=== PATIENT | male | born 1940 | race Caucasian/White ===

== ENCOUNTER 2020-10-16 11:00 | Outpatient (RCR) | payer MEDICARE, BC | END 2020-10-28 | disposition home or self-care (01) | LOC: CARDREHAB | DX: Z48.812 Encounter for surgical aftercare following surgery on the circulatory system (principal); Z95.5 Presence of coronary angioplasty implant and graft ==

== ENCOUNTER 2020-11-06 13:00 | Outpatient (RCR) | payer MEDICARE, BC | END 2021-02-04 | disposition home or self-care (01) | LOC: CARDREHAB | DX: Z48.812 Encounter for surgical aftercare following surgery on the circulatory system (principal); Z95.5 Presence of coronary angioplasty implant and graft ==

== ENCOUNTER → 2021-04-04 | Outpatient (CLI) | payer MEDICARE, BC | LOC: RAD 09:52 | DX: J84.10 Pulmonary fibrosis, unspecified (principal); J47.9 Bronchiectasis, uncomplicated; K80.20 Calculus of gallbladder without cholecystitis without obstruction; J98.4 Other disorders of lung | CPT/HCPCS: Q9967 ==